=== PATIENT | male | born 2000 | race Caucasian/White ===

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

== ENCOUNTER 2020-08-20 01:01 | Emergency (ER) | payer BC, OTHER, SELFPAY ==
[~2020-08-20 01:01] MED LIST changes: -ALL10TAB28 PO; +CETI-24 PO
[2020-08-20 01:46] LABS: HEMATOCRIT 45.3 % (42.0-52.0); HEMOGLOBIN 15.7 g/dl (13.5-17.5); MEAN CORPUSCULAR HEMOGLOBIN 29.3 pg (27.0-33.0); MEAN CORPUSCULAR HGB CONC 34.7 g/dl (32.0-36.5); MEAN CORPUSCULAR VOLUME 84.7 fl (80.0-96.0); PLATELET COUNT, AUTOMATED 274 10^3/uL (150-450); RED BLOOD COUNT 5.35 10^6/uL (4.30-6.10); WHITE BLOOD COUNT 6.7 10^3/uL (4.0-10.0)
[2020-08-20 02:09] LABS: AMPHETAMINES LEVEL URINE NEGATIVE (NEGATIVE); BARBITURATES URINE NEGATIVE (NEGATIVE); BENZODIAZEPINES URINE NEGATIVE (NEGATIVE); CANNABINOIDS URINE NEGATIVE (NEGATIVE); COCAINE METABOLITE URINE NEGATIVE (NEGATIVE); METHADONE URINE NEGATIVE (NEGATIVE); OPIATES URINE NEGATIVE (NEGATIVE); PHENCYCLIDINE URINE NEGATIVE (NEGATIVE)
[2020-08-20 02:41] LABS: ACETAMINOPHEN LEVEL < 2.0 UG/ML (10.0-30.0); ALBUMIN 4.4 GM/DL (3.2-5.2); ALT/SGPT 40 U/L (12-78); BILIRUBIN,DIRECT < 0.1 MG/DL (0.0-0.2); BILIRUBIN,TOTAL 0.6 MG/DL (0.2-1.0); BLOOD UREA NITROGEN 19 MG/DL (7-18); CALCIUM LEVEL 8.3 MG/DL (8.5-10.1); CARBON DIOXIDE LEVEL 25 MEQ/L (21-32); CHLORIDE LEVEL 109 MEQ/L (98-107); CREATININE FOR GFR 0.94 MG/DL (0.70-1.30); ETHYL ALCOHOL (ETHANOL) 0.132 % (0.000-0.010); GLOMERULAR FILTRATION RATE > 60.0 (>60); GLUCOSE, FASTING 107 MG/DL (70-100); POTASSIUM SERUM 3.9 MEQ/L (3.5-5.1); SALICYLATE LEVEL 2.3 MG/DL (5.0-30.0); SODIUM LEVEL 144 MEQ/L (136-145); TOTAL PROTEIN 7.5 GM/DL (6.4-8.2)
[2020-08-20 04:28] VITALS: BP 153/84
== END 2020-08-20 04:29 | disposition home or self-care (01) ==
LOC: M ED 01:01
DX: F10.129 Alcohol abuse with intoxication, unspecified (principal); S09.90XA Unspecified injury of head, initial encounter; W22.8XXA Striking against or struck by other objects, initial encounter; Y92.9 Unspecified place or not applicable; Y93.9 Activity, unspecified; Z88.2 Allergy status to sulfonamides; Z79.899 Other long term (current) drug therapy
CPT/HCPCS: 36415; 80048; 80076; 80307; 84443; 85027; 99284; G0480

== ENCOUNTER 2020-09-02 18:47 | Inpatient (IN) | payer BC, OTHER, SELFPAY ==
[~2020-09-02] VITALS: Ht 180.3 cm; Wt 79.1 kg
[2020-09-02] MEDS ORDERED: VITS42.53 TOP (19:09)
[2020-09-02 19:17] LABS: HEMOGLOBIN 14.5 g/dl (13.5-17.5); MEAN CORPUSCULAR HEMOGLOBIN 29.4 pg (27.0-33.0); MEAN CORPUSCULAR HGB CONC 34.5 g/dl (32.0-36.5); PLATELET COUNT, AUTOMATED 209 10^3/uL (150-450); RED BLOOD COUNT 4.94 10^6/uL (4.30-6.10); WHITE BLOOD COUNT 6.7 10^3/uL (4.0-10.0)
[2020-09-02 19:40] LABS: AMPHETAMINES LEVEL URINE NEGATIVE (NEGATIVE); BARBITURATES URINE NEGATIVE (NEGATIVE); BENZODIAZEPINES URINE NEGATIVE (NEGATIVE); CANNABINOIDS URINE NEGATIVE (NEGATIVE); COCAINE METABOLITE URINE NEGATIVE (NEGATIVE); METHADONE URINE NEGATIVE (NEGATIVE); OPIATES URINE NEGATIVE (NEGATIVE); PHENCYCLIDINE URINE NEGATIVE (NEGATIVE)
[2020-09-02 19:49] LABS: ACETAMINOPHEN LEVEL < 2.0 UG/ML (10.0-30.0); ALBUMIN 4.6 GM/DL (3.2-5.2); ALT/SGPT 21 U/L (12-78); BILIRUBIN,DIRECT 0.2 MG/DL (0.0-0.2); BILIRUBIN,TOTAL 0.8 MG/DL (0.2-1.0); BLOOD UREA NITROGEN 21 MG/DL (7-18); CALCIUM LEVEL 9.3 MG/DL (8.5-10.1); CARBON DIOXIDE LEVEL 28 MEQ/L (21-32); CHLORIDE LEVEL 106 MEQ/L (98-107); ETHYL ALCOHOL (ETHANOL) < 0.003 % (0.000-0.010); GLOMERULAR FILTRATION RATE > 60.0 (>60); GLUCOSE, FASTING 95 MG/DL (70-100); POTASSIUM SERUM 3.9 MEQ/L (3.5-5.1); SALICYLATE LEVEL < 1.7 MG/DL (5.0-30.0); SODIUM LEVEL 140 MEQ/L (136-145); THYROID STIMULATING HORMONE 0.883 uIU/ML (0.358-3.740); TOTAL PROTEIN 7.3 GM/DL (6.4-8.2)
[2020-09-02] MEDS ORDERED: ONETAB9 PO (20:44)
[2020-09-02] MEDS ORDERED: ACETAMINOPHEN TAB 650MG DOSE (2X325MG) PO PRN (21:30)
[2020-09-02] MEDS ORDERED: MAALOX 30 ML SUSP *UDC PO PRN (21:30)
[2020-09-02] MEDS ORDERED: MOM 30ML SUSPENSION UDC PO PRN (21:30)
[2020-09-03 01:17] VITALS: BP 128/86
[2020-09-03] MEDS: LORazepam 1 MG TAB PO PRN ×3 (02:34→22:11)
[2020-09-03] MEDS: ESCITALOPRAM OXALATE 5MG TABLET (LEXAPRO) PO SCH (09:00)
[2020-09-03 17:43] VITALS: BP 148/98
[2020-09-04 06:30] VITALS: BP 122/57
[2020-09-04] MEDS: ESCITALOPRAM OXALATE 5MG TABLET (LEXAPRO) PO SCH (10:07)
--- NOTE | 2020-09-04 10:25 | HPEPDOC ---
[facility] Medical History & Physical Date of Admission Sep 04, 2020 Date of Service: Sep 04, 2020 History and Physical Chief complaint: Presented to the hospital with complaints of suicidal ideation History of present illness: Patient is 20-year-old male with no significant past medical history who presented to the hospital with complaints of suicidal ideation.. He was admitted to inpatient mental health unit under the care of psychiatry. Hospitalist service was contacted for medical screening evaluation. Currently patient denies any headache, nausea, vomiting, chest pain, shortness breath, palpitations, abdominal pain, ulceration, diarrhea, or urinary discomfort. Denies any recent fevers or chills. Patient was that recently his appetite has been poor but he is not aware of any changes in his weight. 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 Review of Systems: 10 point review of systems complete, all negative otherwise stated in HPI Physical exam: - Vitals: BP [122/57], HR [68], RR [18], Sat [18], Temp [98.6F] - General: Sitting up in chair, No acute distress, Speaking in full sentences, AAOx3 - HEENT: NC, AT, PERRLA - CVS: RRR, +S1S2 - Lungs: Fair air entry bilaterally, No wheezing / rales / rhonchi - Abdomen: Soft, Non-distended, Non-tender - Extremities: No lower extremity edema, No calf tenderness - Neuro: No focal motor or sensory deficit - Skin: No visible rashes Assessment and Plan: Suicidal ideation - Admitted to inpatient mental health unit under the care of psychiatry - Currently being managed by psychiatry No significant past medical history DVT prophylaxis - Will continue with early ambulation Female finance professor was present for the duration of his history and physical examination Thank you for this consultation; hospitalist service will now sign off. Please reconsult as needed Vital Signs Vital Signs Date Time Temp Pulse Resp B/P (MAP) Pulse Ox O2 Delivery O2 Flow Rate FiO2 09/04/20 06:30 98.6 68 18 122/57 (78) 97 Room Air Home Medications Scheduled Multivit-Minerals/FA/Lycopene (One Daily For Men Tablet) 1 Each Tablet, 1 TAB PO DAILY Allergies Coded Allergies: Sulfa (Sulfonamide Antibiotics) (Verified Allergy, Mild, 08/20/20) Cephalosporins (Verified Allergy, Unknown, 08/20/20) ROBERT CERON MD Sep 04, 2020 10:25
[2020-09-04] MEDS: LORazepam 1 MG TAB PO PRN ×3 (12:39→21:10)
[2020-09-04 18:43] VITALS: BP 138/88
[2020-09-04] MEDS: traZODone 50 MG TAB PO PRN (21:10)
[2020-09-04] MEDS ORDERED: OLANZapine ORAL DISINTEGRATING TAB 5MG PO ONE (22:45)
[2020-09-05] MEDS: ESCITALOPRAM OXALATE 5MG TABLET (LEXAPRO) PO SCH (09:34)
--- NOTE | 2020-09-05 09:49 | MHIPNPDOC ---
[facility] Progress Note Progress Note DATE OF SERVICE: 09/05/20 Subjective HPI: Oz presents today for anxiety. Patient reports to still feel anxious but his current medication is helping him decrease his anxiety and allowing him to engage more in conversations. MEDICATIONS: Oz is currently taking Lexapro for his anxiety. Objective Speech: Talkative and spontaneous with normal rate, volume, rhythm, and articulation. No perseveration or paucity. Thought Process: Linear logical Association intact. Judgment and Insight: Poor to fair. Assessment F33.8 Other recurrent depressive disorders Plan Continue Lexapro with increased to 10 milligrams to help improve depressive symptoms and anxiety. Hopeful for discharge early this week. Vital Signs Vital Signs Date Time Temp Pulse Resp B/P (MAP) Pulse Ox O2 Delivery O2 Flow Rate FiO2 09/04/20 18:43 99.7 83 18 138/88 (105) 98 Room Air Current Medications Current Medications Medications (Trade) Dose Ordered Sig/Dale Route PRN Reason Start Time Stop Time Status Last Admin Dose Admin Acetaminophen (Tylenol Tab) 650 mg Q6HP PRN PO HEADACHE or DISCOMFORT 09/02/20 21:30 Al Hydrox/Mg Hydrox/Simethicone (Mylanta) 30 ml Q4HP PRN PO HEARTBURN/INDIGESTION 09/02/20 21:30 Escitalopram Oxalate (Lexapro) 5 mg DAILY PO 09/03/20 09:00 09/05/20 09:34 Home Med (Med Rec Complete!) ASDIRECTED XX 09/02/20 20:45 09/02/20 20:47 DC Lorazepam (Ativan) 1 mg Q6HP PRN PO ANXIETY/AGITATION 09/03/20 01:30 09/04/20 21:10 Magnesium Hydroxide (Milk Of Magnesia) 30 ml DAILYPRN PRN PO CONSTIPATION 09/02/20 21:30 Trazodone HCl (Desyrel) 50 mg QHSP PRN PO INSOMNIA 09/02/20 21:30 09/04/20 21:10 Allergies Coded Allergies: Sulfa (Sulfonamide Antibiotics) (Verified Allergy, Mild, 08/20/20) Cephalosporins (Verified Allergy, Unknown, 08/20/20) BARI CABALLERO DO Sep 05, 2020 09:49
--- NOTE | 2020-09-05 13:19 | MHIPN ---
DATE: 09/04/2020 VITAL SIGNS: Blood pressure 122/57, pulse 68, temperature 98.6. CHIEF COMPLAINT: Feels less anxious. SUBJECTIVE: Seen for followup in the presence of staff. Says feels less anxious, and that he slept reasonably well. Says got up, felt anxious about his relationship, but then was able to calm himself down somewhat, says medication helped. Has spoken with his mother. Says wishes to focus on himself rather than his partner, has not had any contact from her. MENTAL STATUS EXAMINATION: He is neat, he is cooperative, there is no agitation, no psychomotor retardation, appears calmer, he is coherent, affect is broader in range than yesterday, looks less anxious. No evidence of any thoughts of harming himself or anyone else, nor of any psychosis. Cognition grossly intact. His judgment is still compromised, though somewhat improved, insight poor. ASSESSMENT: Other specified anxiety disorder. Consider generalized anxiety disorder. Somewhat less anxious, and less distressed over his relationship with his fianc. PLAN: Continue current care, observations, he has been started on Lexapro at 5 mg daily, may need to look at titrating it up. Has used the lorazepam fairly regularly yesterday, useful for him in the short- term. Obtain collateral information. Encourage participation in the unit. He will be seen by the assigned clinician tomorrow, and further recommendations will be made. MAURA
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
[2020-09-05 16:57] VITALS: BP 136/69
[2020-09-05] MEDS: LORazepam 1 MG TAB PO PRN (22:32)
[2020-09-05] MEDS: traZODone 50 MG TAB PO PRN (22:32)
[2020-09-06] MEDS: ESCITALOPRAM OXALATE 10 MG TAB (LEXAPRO) PO SCH (08:52)
--- NOTE | 2020-09-06 13:30 | MHIPNPDOC ---
[facility] Progress Note Progress Note DATE OF SERVICE: 09/06/20 Subjective HPI: Oz presents today for a mental health examine. He reports he is doing well and feeling good on the higher dose of Lexapro. He notes that he feels much less anxious. He has been gregarious, talkative, engaging with others, and has had no complaints today. Patient states he is ready to engage his life and get back to his regular lifestyle as soon as he can be discharged. He is requesting disc harge. Objective Appearance: Appears to be stated age. Well nourished. Well groomed. Behavior: Cooperative with good eye contact. Pleasant. Engaged. Affect: Full range. Appropriate to context. Mood: Generally good. Euthymic. Appropriately reactive. Speech: Normal rate. Normal volume. Spontaneous and Fluid. Motor: No gross motor abnormalities. Cognition: Alert, Attentive, and Oriented to person, place, time. Memory: No formal testing. No gross abnormalities of short or nursing home memory noted during interview. Thought Form: Linear and goal directed. Thought Content: No thoughts of self harm. No evidence of aggressive or homicidal ideation. No evidence of suicidal ideation. No evidence of delusions. Perception: No perceptual abnormalities noted. Judgement: Intact as evidenced by decision making in the recent past. Insight: Good insight into symptoms and treatment options. Assessment F33.8 Other recurrent depressive disorders Plan Continue Lexapro 10 mg daily. Discharge tomorrow if he continues to do well. Vital Signs Vital Signs Date Time Temp Pulse Resp B/P (MAP) Pulse Ox O2 Delivery O2 Flow Rate FiO2 09/05/20 16:57 98.3 78 16 136/69 (91) 09/04/20 18:43 98 Room Air Current Medications Current Medications Medications (Trade) Dose Ordered Sig/Dale Route PRN Reason Start Time Stop Time Status Last Admin Dose Admin Acetaminophen (Tylenol Tab) 650 mg Q6HP PRN PO HEADACHE or DISCOMFORT 09/02/20 21:30 Al Hydrox/Mg Hydrox/Simethicone (Mylanta) 30 ml Q4HP PRN PO HEARTBURN/INDIGESTION 09/02/20 21:30 Escitalopram Oxalate (Lexapro) 5 mg DAILY PO 09/03/20 09:00 09/05/20 12:53 DC 09/05/20 09:34 Escitalopram Oxalate (Lexapro) 10 mg DAILY PO 09/06/20 09:00 09/06/20 08:52 Home Med (Med Rec Complete!) ASDIRECTED XX 09/02/20 20:45 09/02/20 20:47 DC Lorazepam (Ativan) 1 mg Q6HP PRN PO ANXIETY/AGITATION 09/03/20 01:30 09/05/20 22:32 Magnesium Hydroxide (Milk Of Magnesia) 30 ml DAILYPRN PRN PO CONSTIPATION 09/02/20 21:30 Trazodone HCl (Desyrel) 50 mg QHSP PRN PO INSOMNIA 09/02/20 21:30 09/05/20 22:32 Allergies Coded Allergies: Sulfa (Sulfonamide Antibiotics) (Verified Allergy, Mild, 08/20/20) Cephalosporins (Verified Allergy, Unknown, 08/20/20) BARI CABALLERO DO Sep 06, 2020 13:30
[2020-09-06] MEDS: VANICREAM MOISTURIZING SKIN CREAM 113GM TUBE TOP SCH (15:59)
[2020-09-06 16:30] VITALS: BP 134/74
[2020-09-06] MEDS: traZODone 50 MG TAB PO PRN (22:19)
[2020-09-07 06:42] VITALS: BP 145/73
[2020-09-07] MEDS: VANICREAM MOISTURIZING SKIN CREAM 113GM TUBE TOP SCH (08:53)
[2020-09-07] MEDS: ESCITALOPRAM OXALATE 10 MG TAB (LEXAPRO) PO SCH (09:48)
--- NOTE | 2020-09-07 10:24 | MHIPNPDOC ---
[facility] Progress Note Progress Note DATE OF SERVICE: 09/07/20 HISTORY: . VITAL SIGNS: See below. NEW TEST RESULTS: . CURRENT MEDICATIONS: See below. MENTAL STATUS EXAMINATION: Patient is a -year old male, who is . Speech: Is . Language skills are . Thought processes including: . Thought content: . Abstract reasoning, and computation: . Description of assoc iations: . Description of abnormal or psychotic thoughts: . Judgment: . Insight: [very limited, good, fair. poor]. Orientation: . Recent and remote memory: . Attention span and concentration: . Language: . Fund of knowledge: . Mood: . Affect: . DIAGNOSES: 1. . 2. . 3. . ASSESSMENT: MANAGEMENT PLAN: . TIME SPENT: minutes. Vital Signs Vital Signs Date Time Temp Pulse Resp B/P (MAP) Pulse Ox O2 Delivery O2 Flow Rate FiO2 09/07/20 06:42 98.2 58 16 145/73 (97) 09/04/20 18:43 98 Room Air Current Medications Current Medications Medications (Trade) Dose Ordered Sig/Dale Route PRN Reason Start Time Stop Time Status Last Admin Dose Admin Acetaminophen (Tylenol Tab) 650 mg Q6HP PRN PO HEADACHE or DISCOMFORT 09/02/20 21:30 Al Hydrox/Mg Hydrox/Simethicone (Mylanta) 30 ml Q4HP PRN PO HEARTBURN/INDIGESTION 09/02/20 21:30 Emollient Cream (Vanicream) TO LEFT SIDE DAILY TOP 09/06/20 09:00 09/07/20 08:53 Escitalopram Oxalate (Lexapro) 5 mg DAILY PO 09/03/20 09:00 09/05/20 12:53 DC 09/05/20 09:34 Escitalopram Oxalate (Lexapro) 10 mg DAILY PO 09/06/20 09:00 09/07/20 09:48 Home Med (Med Rec Complete!) ASDIRECTED XX 09/02/20 20:45 09/02/20 20:47 DC Lorazepam (Ativan) 1 mg Q6HP PRN PO ANXIETY/AGITATION 09/03/20 01:30 09/05/20 22:32 Magnesium Hydroxide (Milk Of Magnesia) 30 ml DAILYPRN PRN PO CONSTIPATION 09/02/20 21:30 Trazodone HCl (Desyrel) 50 mg QHSP PRN PO INSOMNIA 09/02/20 21:30 10/27/20 22:19 Allergies Coded Allergies: Sulfa (Sulfonamide Antibiotics) (Verified Allergy, Mild, 08/20/20) Cephalosporins (Verified Allergy, Unknown, 08/20/20) BARI CABALLERO DO Sep 07, 2020 10:24
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
[2020-09-07] MEDS ORDERED: ESCI10TA2 PO (11:07)
== END 2020-09-07 13:50 | disposition home or self-care (01) | DRG 885 ==
LOC: M ED 18:47 → M ED INP 21:20 → M PSY 09-03 01:08
PROVIDERS: ADMIT Psychiatry & Neurology Psychiatry; ATTEND Psychiatry & Neurology Addiction Medicine
DX: F32.89 Other specified depressive episodes (principal); F41.1 Generalized anxiety disorder; F10.10 Alcohol abuse, uncomplicated; F17.200 Nicotine dependence, unspecified, uncomplicated; Z88.1 Allergy status to other antibiotic agents; Z88.2 Allergy status to sulfonamides